=== PATIENT | male | born 1955 | race Caucasian/White ===

== ENCOUNTER 2017-10-12 08:12 | Day surgery (SDC) | payer OTHER ==
[2017-09-12 10:31] VITALS: BMI 38.0
[2017-09-12 10:46] VITALS: Ht 185.4 cm; Wt 133.0 kg
[2017-09-12 11:09] LABS: BASO % 0.9 %; BASO ABS # 0.08 K/uL (0-0.2); EOS % 3.9 %; EOS ABS # 0.35 K/uL (0-0.5); HEMATOCRIT 41.8 % (42-52); HEMOGLOBIN 14.2 g/dL (14.0-18.0); IG# 0.03 K/uL (0.00-0.02); LYMPH % 28.2 %; MEAN CELL VOLUME 90.7 fL (80-100); MEAN CORPUSCULAR HEMOGLOBIN 30.8 pg (25-34); MEAN PLATELET VOLUME 9.2 fL (7.4-10.4); MONO % 6.9 %; MONO ABS # 0.61 K/uL (0.11-0.59); NEUT % 59.8 %; PLATELET COUNT 227 K/uL (130-400); RED CELL DISTRIBUTION WIDTH CV 12.9 % (11.5-14.5); RED CELL DISTRIBUTION WIDTH SD 42.8 fL (36.4-46.3); WHITE BLOOD COUNT 8.87 K/uL (4.8-10.8)
--- NOTE | 2017-09-12 11:12 | PAT Medication Instructions ---
Service Date Sep 12, 2017. Current Home Medication List Amlodipine (Norvasc), 5 MG PO NOON Aspirin (Aspirin Ec), 81 MG PO NOON Atorvastatin (Lipitor), 20 MG PO QPM Diphenhydramine Hcl (Benadryl Allergy), 1 CAP PO PRN Ibuprofen (Advil), 800 MG PO PRN Lisinopril/Hctz (Zestoretic 20MG/12.5MG), 2 TAB PO NOON Metoprolol Succinate (Toprol Xl), 50 MG PO NOON [Ativan], 1 TAB PO PRN [Rantidine], 75 MG PO NOON Medication Instructions For Your Scheduled Surgery - Hold the following medications per your surgeon's instructions: Ibuprofen (Advil), 800 MG PO PRN Aspirin (Aspirin Ec), 81 MG PO NOON - Hold the following medications the morning of surgery: Lisinopril/Hctz (Zestoretic 20MG/12.5MG), 2 TAB PO NOON - Take the following medications the morning of surgery with a sip of water: [Ativan], 1 TAB PO PRN (if needed) Diphenhydramine Hcl (Benadryl Allergy), 1 CAP PO PRN (if needed) Amlodipine (Norvasc), 5 MG PO NOON -- TAKE THIS THE MORNING OF SURGERY Metoprolol Succinate (Toprol Xl), 50 MG PO NOON -- TAKE THIS THE MORNING OF SURGERY [Rantidine], 75 MG PO NOON - Take the following medications as scheduled the night before surgery: [Rantidine], 75 MG PO NOON [Ativan], 1 TAB PO PRN (if needed) Metoprolol Succinate (Toprol Xl), 50 MG PO NOON Diphenhydramine Hcl (Benadryl Allergy), 1 CAP PO PRN (if needed) Atorvastatin (Lipitor), 20 MG PO QPM If you have any questions please call us at [phone] or [phone] or [phone]
[2017-09-12 11:20] LABS: CREATININE 1.12 mg/dl (0.60-1.40); POTASSIUM 4.5 mmol/L (3.5-5.1)
[2017-09-12 11:22] LABS: PTT PATIENT 23.4 SECONDS (21.0-31.0)
--- NOTE | 2017-10-11 18:19 | HISTORY & PHYSICAL EXAMINATION ---
DATE OF ADMISSION: 10/12/2017 ADMISSION HISTORY AND PHYSICAL CHIEF COMPLAINT: Right shoulder pain. HISTORY OF PRESENT ILLNESS: This is a 62-year-old male patient of Dr. Fierro'sary complaining of chronic right shoulder pain since a lifting injury on 05/22/2017. The patient has failed conservative treatment and an MRI has confirmed AC arthritis, rotator cuff tear and impingement. PAST MEDICAL HISTORY: Hypertension and rheumatoid arthritis. SOCIAL HISTORY: Nonsmoker and nondrinker. PAST SURGICAL HISTORY: Bilateral shoulder surgeries. FAMILY HISTORY: Noncontributory. REVIEW OF SYSTEMS: The patient complains of chronic right shoulder pain and decreased function. Otherwise, denies any shortness of breath, chest pain, nausea, vomiting or any other joint complaints. MEDICATIONS: 1. Lisinopril/hydrochlorothiazide 20/12.5 two tablets daily. 2. Atorvastatin 20 mg daily. 3. Aspirin 81 mg daily. 4. Toprol 50 mg daily. ALLERGIES: INCLUDE IODINE. PHYSICAL EXAMINATION: GENERAL: Well-developed, well-nourished 62-year-old male in no acute distress. He is alert and oriented x3 and pleasant. HEENT: Normocephalic, atraumatic. Extraocular motions are intact. Pupils are equal and reactive to light. HEART: Regular rate and rhythm, no murmurs appreciated. LUNGS: Clear. ABDOMEN: Soft and nontender. Bowel sounds present. EXTREMITIES: Right shoulder reveals active range of motion to 0-90, passively to 0-140. He has 4/5 strength. NEUROLOGIC: Neurovascularly, he is intact in his right upper extremity. DIAGNOSES: Right shoulder impingement, acromioclavicular arthritis and rotator cuff tear. He has a history of hypertension and rheumatoid arthritis. PLAN: The patient was advised of his diagnosis. Indications, risks, benefits, postop course have all been reviewed. The patient wished to proceed with a right shoulder arthroscopic subacromial decompression, distal clavicle excision and superior capsular reconstruction with human dermal skin graft. Necessary consent forms, preoperative testing and clearances will be obtained.
[~2017-10-12] VITALS: Ht 185.4 cm; Wt 133.0 kg
[~2017-10-12 08:12] MED LIST: AMLO-110 PO; ASPI81TA28 PO; ATIVAN PO; ATOR-22 PO; CEFAZOLIN 3000MG IV PUSH 22.5 ML IV SCH; DEXAMETHASONE SOD INJ 4 MG/ML VIAL ONE; DIPH25CA65 PO; IBUP-1277 PO; LACTATED RINGER'S 1000ML 1,000 ML IV SCH; LISI-787 PO; METO-217 PO; RANTIDINE PO; ROPIVACAINE 0.5% 5 MG/ML 30 ML VIAL ONE
[2017-10-12 09:10] VITALS: BP 147/86; PULSE 78; TEMP 37; O2SAT 93
[2017-10-12] MEDS ORDERED: ATROPINE SULFATE 0.1 MG/ML 5ML SYR IV PRN (10:15)
[2017-10-12] MEDS ORDERED: HYDROmorphone INJ 1 MG/ML SYR IV PRN (10:15)
[2017-10-12] MEDS ORDERED: EpHEDrine SULFATE INJ 50 MG/ML AMP IV PRN (10:15)
[2017-10-12] MEDS ORDERED: LABETALOL HCL IV 5 MG/ML 20ML IV PRN (10:15)
[2017-10-12] MEDS ORDERED: FENTANYL CITRATE INJ 50 MCG/1 ML 2 ML VIAL IV PRN (10:15)
[2017-10-12] MEDS ORDERED: ONDANSETRON INJ 2 MG/ML 2 ML VIAL IV PRN (10:15)
[2017-10-12] MEDS ORDERED: MEPERIDINE HCL 25 MG/ML CARP IV PRN (10:15)
--- NOTE | 2017-10-12 10:30 | History & Physical Bridge Note ---
H&P Re-Evaluation Bridge Note: I have examined the patient, reviewed the History & Physical and in the interval since the performance of the History & Physical I have noted the following changes of clinical significance: No changes noted
[2017-10-12] MEDS ORDERED: EpINEphrine HCL INJ 1 MG/ML 1ML SYRINGE ONE ×2 (10:44→13:37)
[2017-10-12] MEDS ORDERED: MIDAZOLAM HCL 1 MG/ML 2ML VIAL ONE (10:46)
[2017-10-12] MEDS ORDERED: FENTANYL CITRATE INJ 50 MCG/1 ML 2 ML VIAL ONE ×4 (10:46→15:28)
[2017-10-12] MEDS ORDERED: HYDROmorphone INJ 2 MG/ML SYR/VIAL ONE ×3 (11:41→15:28)
[2017-10-12] MEDS ORDERED: PROPOFOL IV EMULSION 10 MG/ML 20 ML VIAL IV ONE (13:59)
[2017-10-12] MEDS ORDERED: DEXAMETHASONE SOD INJ 4 MG/ML VIAL ONE (13:59)
[2017-10-12] MEDS ORDERED: ONDANSETRON INJ 2 MG/ML 2 ML VIAL ONE ×2 (13:59→15:32)
[2017-10-12] MEDS ORDERED: LIDOCAINE HCL 2% 2 ML VIAL (20MG/ML) ONE (13:59)
[2017-10-12] MEDS ORDERED: PHENYLEPHRINE 100MCG/ML 5ML SYR ONE ×2 (14:00→15:32)
[2017-10-12] MEDS ORDERED: ROCURONIUM BROMIDE 10 MG/ML 5 ML VIAL IV ONE (14:00)
[2017-10-12] MEDS ORDERED: EpHEDrine SULFATE 50MG/5ML SYR ONE ×2 (14:00→15:32)
[2017-10-12] MEDS ORDERED: CEFAZOLIN SOD 1 GM VIAL ONE (15:06)
[2017-10-12] MEDS ORDERED: NEOSTIGMINE METHYLSULFATE 1 MG/ML 10ML VIAL ONE (15:32)
[2017-10-12] MEDS ORDERED: KETOROLAC TROMETHAMINE 30 MG/ML VIAL ONE (15:32)
[2017-10-12] MEDS ORDERED: GLYCOPYRROLATE INJ 0.2 MG/ML VIAL ONE (15:32)
[2017-10-12] MEDS ORDERED: SODIUM CHLORIDE 0.9% 1000ML 1,000 ML IV SCH (15:53)
[2017-10-12] MEDS ORDERED: OXYC-57 PO (15:55)
--- NOTE | 2017-10-12 15:58 | Discharge Instructions ---
Discharge Instructions Date of Service Oct 12, 2017. Admission Reason for Admission: Right Shoulder Impingement Syndrome, Osteoarthriti Discharge Discharge Diagnosis / Problem: right shoulder superior capsular repair with graft Discharge Goals Goal(s): Improve function Activity Recommendations Activity Limitations: as noted below . Instructions / Follow-Up Instructions / Follow-Up Please see Home Instruction Sheet printed in chart. May loosen sling to move elbow ONLY, no shoulder motion and sling at all times. May change dressings and shower POD #2 No driving Ice as needed. Follow up with Dr. Fierro as scheduled, call [phone] to confirm appt. Current Hospital Diet Patient's current hospital diet: Discharge Diet Recommended Diet: Regular Diet Pending Studies Studies pending at discharge: no Medical Emergencies . Who to Call and When: Medical Emergencies: If at any time you feel your situation is an emergency, please call [phone] immediately. . Non-Emergent Contact Non-Emergency issues call your: Primary Care Provider . "Provider Documentation" section prepared by Paul Anne. . VTE Core Measure Inpt VTE Proph given/why not?: SCD's
[2017-10-12] MEDS ORDERED: OXYCODONE/ACETAMINOPHEN 5-325 TAB PO PRN ×2 (16:00)
--- NOTE | 2017-10-12 16:01 | [facility] Post Operative Brief Note ---
Immediate Operative Summary Operative Date Oct 12, 2017. Pre-Operative Diagnosis right shoulder non repairable rotator cuff tear ,failed rotator cuff repair,subacromial impingement,acj arthritis. Post-Operative Diagnosis same ,glenohumeral arthritis ,retained suture material and anchors, biceps tendinopathy,chronic bursitis. Procedure(s) Performed right shoulder arthroscopic superior capsular reconstruction with arthroflex human dermal skin graft with decompression revision and distal clavicle excision and biceps tenodesis and extensive debridement Surgeon odalis It Operations Specialist Surgeon(s) nate Estimated Blood Loss 30cc Findings Consistent with Post-Op Diagnosis Specimens none Drains None Anesthesia Type General Regional Complication(s) none Disposition Disposition: Recovery Room / PACU
[2017-10-12 16:38] VITALS: BP 145/70; PULSE 93; TEMP 36.3; O2SAT 92
--- NOTE | 2017-10-12 16:58 | Anesthesiology Progress Note ---
Anesthesia Post Op Note Date & Time Oct 12, 2017 at 16:58 Vital Signs Pain Intensity: 0 Vital Signs Past 12 Hours Date Time Temp Pulse Resp B/P (MAP) Pulse Ox O2 Delivery O2 Flow Rate FiO2 10/12/17 16:38 36.3 93 18 145/70 92 Room Air 10/12/17 16:30 36.6 93 15 141/76 93 Room Air 10/12/17 16:20 97 17 141/88 96 Nasal Cannula 2 10/12/17 16:10 85 17 133/76 94 Oxymask 10 10/12/17 16:00 87 16 141/70 96 Oxymask 10 10/12/17 15:53 36.3 92 13 147/71 96 Oxymask 10 10/12/17 09:10 37 78 20 147/86 (106) 93 Room Air Notes Mental Status: alert / awake / arousable, participated in evaluation Pt Amnestic to Procedure: Yes Nausea / Vomiting: adequately controlled Pain: adequately controlled Airway Patency, RR, SpO2: stable & adequate BP & HR: stable & adequate Hydration State: stable & adequate Anesthetic Complications: no major complications apparent
[2017-10-12 17:08] VITALS: BP 147/77; PULSE 96; TEMP 36.4; O2SAT 93
--- NOTE | 2017-10-12 20:40 | OPERATIVE REPORT ---
DATE OF OPERATION: 10/12/2017 INDICATION FOR PROCEDURE: The patient is a 62-year-old male who presents with a reinjury to his right shoulder, work-related injury. History of 2 previous rotator cuff surgeries done on his right shoulder. He has failed rotator cuff repair with massive rotator cuff tear, felt to be nonrepairable. He also has a significant AC joint arthritis which is likely contributing to impingement and the surface acromion to the AC joint side type 3, although the lateral acromion decompression was satisfactory. The patient has significant pain, weakness, not a candidate for reverse shoulder replacement based on his activity level and age at this time. PREOPERATIVE DIAGNOSES: Nonrepairable rotator cuff tear, right shoulder; acromioclavicular joint arthritis and subacromial impingement, failed rotator cuff repair. POSTOPERATIVE DIAGNOSES: Same including some degenerative joint disease, glenohumeral joint and biceps tendinopathy, retained suture material and anchors status post prior rotator cuff repair, chronic subacromial bursitis, subdeltoid adhesions. PROCEDURE: Right shoulder arthroscopy with superior capsular reconstruction using ArthroFlex human dermal skin graft including biceps tenodesis, rotator cuff repair to graft, revision, decompression and a distal clavicle excision and extensive debridement including debridement of rotator cuff bursa, glenohumeral joint; multiple areas of suture material and removal of 1 suture anchor. SURGEON: Dr. Fierro. PENCIL INSPECTOR: Paul Anne PA-C. ANESTHESIA: Regional block and general. OPERATIVE PROCEDURE: The patient had regional block and general anesthetic. Placed in the operating room on a Schlein shoulder table in 70 degree beach chair position. Then, his right shoulder was examined under anesthesia, he had just a minor loss of range of motion only 170 degrees of forward elevation, external rotation to about 75-80 degrees. He has of a large male, muscular with obesity as well. His lower extremities had SCDs placed. All extremities were well padded. Then, his right shoulder and upper extremity was prepped and draped in the usual sterile fashion using ChloraPrep. Arthroscopy was initiated with posterior arthroscopy portal in the soft spot. We did an anterior portal in the rotator interval, we did an anterior superior lateral portal and we did 2 superior lateral portals, 1 standard lateral portal and one Neviaser portal and one accessory posterior portal medial to the prior portal for suture anchor placement sites only. In the glenohumeral joint, he had some arthritic changes on the glenoid, just some fraying of the glenoid. In general, a grade 2 early grade 3, no exposed bone. The labrum had some synovitis around the posterior labrum. Biceps anchor was intact, the biceps was widened and tendinopathic in appearance but no fraying. The subscapularis had tendinopathy with striations in the subscapularis tendon tissue consistent with chronic tendinopathy. There was some reasonable rotator interval tissue attached to the supraspinatus which was retracted back to the level of the glenoid. The infraspinatus and supraspinatus both torn and retracted back to the level of the glenoid and were not repairable. The teres minor was intact. The acromion had a decompression along the anterolateral aspect of the acromion process, but medially toward the AC joint, there was a large hooked type 3 shape to the acromion and a very low riding distal clavicle, likely contributing to impingement. He is [id number] in the AC joint and had large cystic changes in the distal clavicle. The shoulder had chronic thickened and scarred subacromial bursa, some subdeltoid adhesions and at the tuberosity attachment site, there were multiple suture anchors which had loops of suture and tied knots from the prior repair which was primarily soft tissue repair, but there was 1 suture that was ruptured. The humeral head for the most part a good articular surface and had just a little bit of a superior wear from impingement. Attention was first taken to debriding the glenohumeral joint and partial synovectomy was performed, a frayed surface of the glenoid was debrided. The biceps tendon had a spinal needle placed through it. A #1 PDS suture placed to control the biceps and a tenotomy performed. Then I debrided the glenoid from the base of the coracoid back to the posterior glenoid back off about a cm to expose the bone of the superior glenoid for reattachment of the capsule to the superior glenoid. We did debride some of the superior labrum, so we had a good flat attachment lying that graft down tightly into the glenoid. The radiofrequency ablator was used and a shaver was used to get a bony bleeding surface for repair. The significant scarred bursal bands over the posterior cuff were debrided so we could visualize the posterior rotator cuff. The patient appeared to have the teres minor was intact, may be a thin amount of infraspinatus attached to that but the majority of the infraspinatus and supraspinatus were torn and retracted medial to the glenoid. All the scarred bursa was resected around the rotator cuff and overlying the multiple sutures. The multiple sutures then removed using a suture cutter device which was an end-cutting device, we did cut the individual sutures, then removed them with graspers. All the suture knots were removed, suture material was removed and the scar tissue was ablated on the greater tuberosity. A suction shaver device was used to debride the greater tuberosity from the articular margin out to the lateral greater tuberosity down off the tuberosity to the lateral side of the tuberosity. The edge of the teres minor, infraspinatus posteriorly was debrided and then the undersurface of the acromion was ablated, and we ablated the inferior AC joint capsule to expose the spurs and then we did a decompression using a 5.5 bur, planed the acromion to a type 1 flat shape including the medial aspect adjacent to the distal clavicle and initially we resected 1 cm of the distal clavicle undersurface having the remainder to be performed after the reconstruction. At this time, the glenoid anchors were placed. We used a 3 mm Arthrex knotless suture tacks for medial row fixation. One placed to Neviaser portal, 1 posteriorly, 1 anteriorly at the base of the coracoid. When placing in the middle anchor, initially we did have penetration of the central glenoid area so we did remove that anchor and left a 3 mm hole at which time surface was debrided there and then I went ahead and placed a more anterior and medial with good purchase of the second anchor that was placed. All three anchors were secure. Then the lateral row anchors just off the articular margin were placed and these were about 20 mm apart. A Tanana tape and FiberTapes were placed posteriorly anteriorly respectively using 4.75 BioComposite SwiveLock anchors. At this point, we did use a passport cannula laterally widening the previous hole from the arthroscope-working cannula and an arthroscope-working cannula anteriorly in the anterior portal as well. I then placed a towel to protect the skin from touching the graft at all times. The individual sutures from the suture tacks were brought out through the passport cannula laterally. We started from posterior to anterior direction. We placed a passing suture and the suture from the knotless anchor laterally and the tail being kept through the medial insertion site. The suture was passed using a scorpion suture passer with a mattress type suture being placed and then suture was passed through the PushLock with the passing suture and some slack taken off the suture at the appropriate length and then we went ahead and repeated the steps 2 more times with the other anchors. Then the Tanana tape and FiberTapes were passed through the inferior surface and out the dorsal surface of the graft. Previously, the graft was prepared and the size of the graft was fashioned, based on the patient's anatomy and sizing using the Arthrex measuring device. The graft width was approximately 30 mm medially, about 45 anteriorly, 40 posteriorly and about 35 laterally. With the graft in place, then we tacked out the graft using a [employer] grasping device. We took the slack out of the knot was sutures gradually as we advanced the graft through the passport cannula into the subacromial space. We gradually advanced the graft to the superior glenoid and tightened up the sutures until they were all tight with the graft tightly fixed. We looked under the graft and the graft was secured to the glenoid with no gaps. We did notice a posterior loop from the posterior most suture anchor and this loop was not able to be taken out by pulling on the suture and we were pulling quite tightly and appeared that this was cinched in position and that we would not able to pull it through without putting out the anchor inadvertently. So, this was left as is in the meantime and then went ahead and placed the lateral row fixation using 1 Tanana and 1 FiberTape into 2 more 4.75 BioComposite SwiveLock anchors placed laterally. At this point, then we arthroscopically tied the loop to the suture that it came from securing another knot over the graft posteriorly and the sutures were cut then. Then we sutured the graft to the remnant of the infraspinatus and teres minor posteriorly with 2 simple sutures [id number] closure using #2 FiberWire x2. These were tied with arthroscopic Alvaro sliding locking knot 3 reverse half hitches and alternating posts. Then a fairly ratliff rotator interval tissue was repaired to the anterior aspect of the graft with another similar arthroscopic knot using #2 FiberWire. We assessed the trampoline effect of the graft by placing superior force on the graft and there was no contact between the graft and the acromion at all with a stable fixation. It was of note that we did tension the graft at 30 degrees of abduction and neutral rotation. At this point, some further bursectomy was performed and then went ahead and placed a 70 degree scope through the lateral portal and visualized the remaining upper aspect of the distal clavicle being resected as were resected 1 cm distal clavicle saving the superior posterior capsule for stability. When we resecting distal clavicle, we did enter very large degenerative cysts that were completely resected when distal clavicle was resected. All debris was irrigated out subacromial space. Prior to the graft being placed, I did do a biceps tenodesis. With the traction placed on the PDS suture, the biceps was placed under maximum tension and the upper bicipital groove was debrided down to bone and a 2.8 mm cubic suture anchor was placed in the upper bicipital groove and then we transfixed the biceps using a simple and a whipstitch using the EVRGRion suture passer and tied these knots down with a sliding locking knot reversed half-hitches in alternating posts and also a surgeon's knot for the whipstitch and then cut the excess biceps off. There was performed prior to the capsule reconstruction. The multiple skin portals were closed with interrupted nylon sutures. Sterile dressings were applied and abduction pillow sling immobilizer. The patient tolerated the procedure well. DANYEL Nixon was my assistant vice president. He functioned as my assistant vice president for the entire procedure. He assisted in patient positioning, prepping, draping, arm positioning, suture management, performed the skin closure, dressings and an abduction pillow sling application and will participate in postoperative care of the patient. I attest to the content of the Intraoperative Record and any orders documented therein. Any exception s are noted below.
== END 2017-10-12 17:18 | disposition home or self-care (01) ==
LOC: C.ACU 08:12
PROVIDERS: ATTEND Orthopaedic Surgery Sports Medicine
DX: M25.811 Other specified joint disorders, right shoulder (principal); X50.9XXA Other and unspecified overexertion or strenuous movements or postures, initial encounter; M75.51 Bursitis of right shoulder; Y99.0 Civilian activity done for income or pay; I10 Essential (primary) hypertension; M06.9 Rheumatoid arthritis, unspecified; Z79.899 Other long term (current) drug therapy; Z79.82 Long term (current) use of aspirin